=== PATIENT | female | born 1990 | race Caucasian/White ===

== ENCOUNTER 2025-06-26 11:15 | Emergency (ER) | payer MEDICAID ==
[~2025-06-26] VITALS: Ht 160 cm; Wt 72.6 kg
[2025-06-26 12:10] LABS: APPEARANCE,URINE CLEAR (CLEAR); BLOOD, URINE Negative Ery/uL (NEGATIVE); LEUKOCYTE ESTERASE ,URINE Negative (NEGATIVE); UGLUCOSE Negative (NEGATIVE)
[2025-06-26 12:12] LABS: PLATELET COUNT (AUTO) 279 K/uL (150-450); RED BLOOD CELL COUNT(AUTO) 4.15 MIL/uL (4.0-5.2); RED CELL DISTRIBUTION WIDTH 12.3 % (11.5-15.0); WHITE BLOOD COUNT (AUTO) 5.6 K/uL (4.3-11.0)
[2025-06-26 12:13] LABS: NITRITE, URINE NEGATIVE (NEGATIVE); PREGNANCY TEST URINE QUAL NEGATIVE (NEGATIVE)
[2025-06-26] MEDS: IV NS 0.9% 1,000 ML BAG IV ONE (12:22)
[2025-06-26 12:29] LABS: CALCIUM, SERUM 8.7 mg/dL (8.5-10.1); CREATININE 0.5 mg/dL (0.6-1.3); SODIUM SERUM 135.0 mmol/L (136-145); UREA NITROGEN, BLOOD 14.0 mg/dL (7-18)
[2025-06-26 12:34] LABS: ASPARTATE AMINOTRANSFERASE 19.0 U/L (15-37); TOTAL PROTEIN, SERUM 7.6 g/dL (6.4-8.2)
[2025-06-26] MEDS ORDERED: KETOROLAC TROMETHAMINE INJ 30 MG/ML VIAL ONE (12:39)
[2025-06-26] MEDS: KETOROLAC TROMETHAMINE INJ 30 MG/ML VIAL IV ONE (12:44)
[2025-06-26 14:33] VITALS: BP 104/68; TEMP 98.3; O2SAT 99
== END 2025-06-26 14:34 | disposition home or self-care (01) ==
LOC: ER 11:20 → EDSEX 11:20 → ER 14:34
DX: R10.9 Unspecified abdominal pain (principal); R10.2 Pelvic and perineal pain
CPT/HCPCS: 99285; 74176; 96374; 96361; 85025; 80048; 87086; 83690; 80076; 84703; 81003; 36415; 84702; J1885; J7030